=== PATIENT | male | born 1975 | race Caucasian/White ===

== ENCOUNTER → 2021-06-11 | Outpatient (CLI) | payer OTHER ==
[~2021-06-11] MED LIST: REGADENOSON 0.4 MG/5 ML SYRINGE ONE
== END | disposition home or self-care (01) ==
LOC: CFH 08:05
PROVIDERS: ATTEND Family Medicine
DX: R07.9 Chest pain, unspecified (principal)
CPT/HCPCS: 78452; 93017; A9502; J2785